=== PATIENT | female | born 1975 | race Caucasian/White ===

== ENCOUNTER 2019-10-20 08:48 | Emergency (ER) | payer SELFPAY ==
--- NOTE | 2019-10-20 09:34 | EDM.PDOC ---
ED HPI GENERAL MEDICAL PROBLEM - General Chief Complaint: ENT Problem Stated Complaint: SINUS PAIN Time Seen by Provider: 10/20/19 08:58 Source of Information: Reports: Patient, Significant Other (Fianc) History Limitations: Reports: No Limitations - History of Present Illness INITIAL COMMENTS - FREE TEXT/NARRATIVE: Ms. Gayle is a very pleasant 44-year-old woman with no chronic medical problems, who now presents the ED stating that she developed left-sided frontal and maxillary sinus pressure 2 days ago, as well as a muffling sound to her left ear. She has had yellowish-green nasal drainage. She is also felt slightly dizzy for the past couple of days. She states that all of this began after she developed a cold, including symptoms of clear rhinorrhea, sneezing, and a slight cough, on 09/20/2019. She has not had a fever. No prior similar symptoms. The patient states that she has taken some krbk-skh-vatvbto NyQuil on occasion over the past few weeks, and has been using a saline nasal spray from a squeeze bottle for the past 2 weeks. She took a single tablet of Zyrtec yesterday, although has used this on occasion in the past, as well. Here in the ED, the patient is found to be hemodynamically stable, afebrile, saturating 96% on room air. Other than her cold symptoms and more recent sinus pressure with left ear muffling, the patient denies recent fever, chills, sore throat, ear pain, dyspnea, chest pain, palpitations, nausea, vomiting, constipation, diarrhea, abdominal pain, urinary symptoms, recent weight gain or weight loss, recent bloody bowel movements or black bowel movements, recent joint aches, headaches, or rashes. The patient states that she moved to this area about 5 months ago, and does not have a PCP. Headache Pain Score (Numeric/FACES): 8 - Related Data Allergies Allergy/AdvReac Type Severity Reaction Status Date / Time No Known Allergies Allergy Verified 10/20/19 09:00 Home Meds: Home Meds . [No Known Home Meds] 10/20/19 [History] Past Medical History [employer] History: Reports: Spontaneous (x 1) : 3 Para: 2 - Past Surgical History HEENT Surgical History: Reports: Oral Surgery (wisdom teeth extraction) GI Surgical History: Reports: Cholecystectomy (2014) Female Surgical History: Reports: Section (x 1) Social & Family History - Tobacco Use Smoking Status *Q: Current Every Day Smoker Years of Tobacco use: 25 Packs/Tins Daily: 1 - Alcohol Use Alcohol Use History: Yes Alcohol Use Frequency: Socially - Recreational Drug Use Recreational Drug Use: No - Living Situation & Occupation Living situation: Reports: Single, with Significant Other (Fianc) Occupation: Employed (Humanitarian aid volunteer) ED ROS ENT - Review of Systems Review Of Systems: Comprehensive ROS is negative, except as noted in HPI. ED EXAM, ENT - Physical Exam Exam: See Below Exam Limited By: No Limitations General Appearance: Alert, WD/WN, No Apparent Distress Eye Exam: Bilateral Eye: EOMI, Normal Inspection Ears: Normal External Exam, TM Obscured by Cerumen (Left completely, right near- completely. The visible portion of her right TM apears pearly [place].) Nose: Normal Inspection, Normal Mucousa, No Blood Mouth/Throat: Normal Inspection, Normal Gums, Normal Lips, Normal Oropharynx, Normal Teeth Head: Atraumatic, Normocephalic, Sinus Tenderness (Mild, left frontal and maxillary only. No right sinus tenderness. No facial erythema, calor, or swelling.) Neck: Normal Inspection, Supple, Non-Tender, Full Range of Motion. No: Lymphadenopathy (L), Lymphadenopathy (R) Course - Vital Signs Last Recorded V/S: Last Vital Signs Temp 36.4 C 10/20/19 08:56 Pulse 91 10/20/19 08:56 Resp 16 10/20/19 08:56 BP 119/93 H 10/20/19 08:56 Pulse Ox 96 10/20/19 08:56 - Re-Assessments/Exams Free Text/Narrative Re-Assessment/Exam: 10/20/19 09:25 As above, the patient appears to have acute rhinosinusitis. There is no suggestion of a bacterial infection, she has no fever, and she is not generally ill, therefore antibiotics are not recommended. Her sinusitis may be due to inadequate drainage of her sinuses due to her smoking, or due to a viral URI. 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 Going forward, I am recommendin. That she quit smoking. 2. That she stop using qxhk-bag-skdkwgk antihistamines, as her symptoms do not appear to be due to allergic rhinitis, and antihistamines will merely thicken the mucus. 3. That she purchase and use an ngnx-egm-pgywbmq nasal saline spray in a pressurized can, such as "Simply Saline". 4. That she purchase an kuyu-jeb-ozldfvo nasal steroid spray, such as fluticasone or mometasone, and use as directed. 5. That she purchase bvqj-brg-knbmxpk Debrox, and use it in both ears for about 4 days. 6. That she then follows up in the clinic, not only to establish a PCP, but also to have both of her ears irrigated. Departure - Departure Time of Disposition: 09:29 Disposition: Home, Self-Care 01 Condition: Good Clinical Impression: Acute rhinosinusitis - Discharge Information *PRESCRIPTION DRUG MONITORING PROGRAM REVIEWED*: Not Applicable *COPY OF PRESCRIPTION DRUG MONITORING REPORT IN PATIENT JESUS: Not Applicable Instructions: Sinusitis, Adult, Cloi-uy-Fuoq Referrals: Ngozi Caballero, BRIGITTE [Nurse Practitioner] - Forms: ED Department Discharge Additional Instructions: You were seen in the emergency room for 2 days of increased left-sided sinus pressure and left ear muffling, associated with greenish/yellowish nasal drainage and mild dizziness. Based on your history and physical examination, you are suffering from acute viral rhinosinusitis. As discussed, we recommend the followin. That you quit smoking. 2. That you stop using kpwq-grw-dcokoxn antihistamines, as your symptoms do not appear to be due to allergic rhinitis (seasonal allergies), and the antihistamines will merely thicken the mucus. We also recommend that you stop using drxw-vgm-scywwls cough/cold medicines, such as NyQuil. 3. That you purchase and use an frvf-kmk-klevfuc nasal saline spray in a pressurized can, such as "Simply Saline". 4. That you purchase an xunr-irg-hfykagz nasal steroid spray, such as fluticasone (Flonase) or mometasone (Nasonex), and use as directed. Although they are similar, fluticasone may be superior to mometasone. 5. That you purchase irez-llu-nkmbsrw Debrox, and use it in both ears for about 4 days. 6. That you then follows up with Ngozi Caballero NP, or one of the other providers in the clinic, not only to establish a PCP, but also to have both of your ears irrigated. If any other problems, please do not hesitate to return to the ER. Sepsis Event Note (ED) - Evaluation Sepsis Screening Result: No Definite Risk - Focused Exam Vital Signs: Vital Signs Temp Pulse Resp BP Pulse Ox 10/20/19 08:56 36.4 C 91 16 119/93 H 96
== END 2019-10-20 09:39 | disposition home or self-care (01) ==
LOC: JD.ED 08:48
DX: J01.90 Acute sinusitis, unspecified (principal); F17.210 Nicotine dependence, cigarettes, uncomplicated
CPT/HCPCS: 99282; 99283

== ENCOUNTER 2022-04-05 16:54 | Emergency (ER) | payer BC ==
[2022-04-05] MEDS ORDERED: HYDROmorphone 1 MG/ML Syringe IM ONE (17:34)
[2022-04-05] MEDS ORDERED: Promethazine 25 MG/ML SDV IM ONE (17:35)
== END 2022-04-05 18:50 | disposition home or self-care (01) ==
LOC: JD.ED 16:54
DX: L23.9 Allergic contact dermatitis, unspecified cause (principal); F98.8 Other specified behavioral and emotional disorders with onset usually occurring in childhood and adolescence; Z72.0 Tobacco use; Z98.890 Other specified postprocedural states; Z88.5 Allergy status to narcotic agent
CPT/HCPCS: 96372; 99282; J1170; J2550

== ENCOUNTER 2022-04-09 13:01 | Emergency (ER) | payer BC ==
[2022-04-09] MEDS ORDERED: Sodium Chloride 0.9% 1,000 ML IV ONE (15:03)
[2022-04-09] MEDS ORDERED: Linezolid 600 MG in Premix Bag 1 BAG IV ONE (15:04)
[2022-04-09] MEDS ORDERED: fentaNYL 100 MCG/2 ML SDV IVPUSH ONE (15:13)
[2022-04-09] MEDS ORDERED: hydrOXYzine HCl 25 MG/ML SDV IM ONE (15:14)
== END 2022-04-09 16:56 | disposition home or self-care (01) ==
LOC: JD.ED 13:01
DX: L03.312 Cellulitis of back [any part except buttock and flank] (principal); L24.9 Irritant contact dermatitis, unspecified cause; F41.9 Anxiety disorder, unspecified; Z88.6 Allergy status to analgesic agent
CPT/HCPCS: 36415; 80053; 85025; 96365; 96372; 96375; 99283; J2020; J3010; J3410; J7030

== ENCOUNTER 2022-04-22 17:26 | Emergency (ER) | payer BC | END 2022-04-22 20:20 | disposition home or self-care (01) | LOC: JD.ED 17:26 | DX: F90.9 Attention-deficit hyperactivity disorder, unspecified type (principal); Z76.0 Encounter for issue of repeat prescription; J45.909 Unspecified asthma, uncomplicated; Z88.8 Allergy status to other drugs, medicaments and biological substances | CPT/HCPCS: 99281; 99283 ==